=== PATIENT | female | born 2000 | race Caucasian/White ===

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

== ENCOUNTER 2019-06-28 17:56 | Inpatient (IN) | payer MEDICAID ==
[~2019-06-28] VITALS: Ht 176 cm; Wt 67.0 kg
[~2019-06-28 17:56] MED LIST changes: -D5 LR IV SOLUTION 1,000 ML IV ONE; +IBUP-844 PO; +PREN1TAB86 PO
--- NOTE | 2019-06-28 18:00 | NUR ---
Arrived to unit for induction of labor. Accompanied by mother. Wt obtained and to room 320. Gowned and urine sample obtained. To bed and oriented to bed, call light and surroundings. Plan of care reviewed with pt and mother. pt denies questions.
[2019-06-28 18:35] VITALS: BP 120/74
[2019-06-28] MEDS ORDERED: WATER (STERILE) FOR INJECTION 20 ML ONE (19:14)
[2019-06-28] MEDS ORDERED: AMPICILLIN FOR IV USE 2,000 MG VIAL ONE (19:14)
[2019-06-28] MEDS ORDERED: MINERAL OIL CONCENTRATE 99.9% 15 ML UDC TOP PRN (19:15)
[2019-06-28 19:24] LABS: BASOPHILS % (AUTO) 0 % (0-10); EOSINOPHILS # (AUTO) 0.1 10^3/uL (0.0-0.3); EOSINOPHILS % (AUTO) 1 % (0-10); HEMATOCRIT 27 % (35-52); HEMOGLOBIN 8.1 G/DL (11.5-16.0); LYMPHOCYTES # (AUTO) 1.9 X 10^3 (1.0-4.0); LYMPHOCYTES % (AUTO) 19 % (12-44); MEAN CORPUSCULAR HEMOGLOBIN 21 PG (25-34); MEAN CORPUSCULAR HGB CONC 30 G/DL (32-36); MEAN CORPUSCULAR VOLUME 71 FL (80-99); MONOCYTES # (AUTO) 1.1 X 10^3 (0.0-1.0); MONOCYTES % (AUTO) 11 % (0-12); NEUTROPHILS # (AUTO) 6.7 X 10^3 (1.8-7.8); NEUTROPHILS % (AUTO) 68 % (42-75); PLATELET COUNT 311 10^3/uL (130-400); RED CELL DISTRIBUTION WIDTH 15.8 % (10.0-14.5); WHITE BLOOD COUNT 9.8 10^3/uL (4.3-11.0)
[2019-06-28] MEDS: D5 LR IV SOLUTION 1,000 ML IV SCH (19:25)
[2019-06-28] MEDS ORDERED: LACTATED RINGERS 1,000 ML IV SCH (19:42)
[2019-06-28] MEDS ORDERED: MISOPROSTOL 100 MCG (CYTOTEC) TAB PO ONE (19:45)
[2019-06-28] MEDS ORDERED: TERBUTALINE INJ 1 MG/ML (BRETHINE) AMP SC PRN (19:45)
[2019-06-28] MEDS ORDERED: AMPICILLIN FOR IV USE 2,000 MG in WATER (STERILE) FOR INJECTION 14.8 ML IV ONE (20:00)
[2019-06-28 20:40] VITALS: BP 121/67
[2019-06-28 21:40] VITALS: BP 114/61
[2019-06-28] MEDS ORDERED: CATHETER FLUSH 10 ML SYR IV SCH (22:00)
[2019-06-28 22:40] VITALS: BP 113/67
[2019-06-28] MEDS: AMPICILLIN FOR IV USE 1,000 MG in WATER (STERILE) FOR INJECTION 7.4 ML IV SCH (23:22)
[2019-06-28 23:40] VITALS: BP 124/70
[2019-06-28] MEDS ORDERED: MISOPROSTOL 100 MCG (CYTOTEC) TAB PO SCH (23:45)
[2019-06-29] VITALS (15 sets, daily range): BP systolic 108–143; BP diastolic 55–83
[2019-06-29] MEDS: D5 LR IV SOLUTION 1,000 ML IV SCH (03:27)
[2019-06-29] MEDS: AMPICILLIN FOR IV USE 1,000 MG in WATER (STERILE) FOR INJECTION 7.4 ML IV SCH (03:27)
[2019-06-29] MEDS ORDERED: LIDOCAINE/EPI 2% 1:200,00 (XYLOCAINE) 10 ML VIAL ONE (03:28)
[2019-06-29] MEDS ORDERED: OXYTOCIN/NORMAL SALINE 500 ML IV ONE (04:08)
[2019-06-29] MEDS ORDERED: MISOPROSTOL 200 MCG (CYTOTEC) TABLET ONE (04:17)
--- NOTE | 2019-06-29 04:42 | History & Physical-OB ---
OB - Chief Complaint & HPI Date/Time Date of Admission: Date of Admission: Jun 28, 2019 at 17:56 Date seen by a Provider: Jun 29, 2019 Time Seen by a Provider: 03:45 Chief Complaint/History OB-Reason for Admission/Chief: Induction of Labor Hx : 2 Hx Para: 1 Expected Date of Delivery: Jun 27, 2019 Gestational Age in Weeks: 40 Gestational Age in Days: 1 Indication for induction: post dates Allergies and Home Medications Allergies Coded Allergies: No Known Drug Allergies (Unverified , 06/13/14) Home Medications Ibuprofen 600 Mg Tablet, 600 MG PO Q6H Prescribed by: GEREMIAS BAR on 04/07/18 1020 Vit W-Ca,Fe,FA(<1 mg) 1 Each Tablet, 1 EACH PO DAILY, (Reported) Patient Home Medication List Home Medication List Reviewed: Yes OB - History Hx of Present Care: Yes Ultrasounds: Normal mid trimester US Obstetrical Complications: None Medical Complications: None Other Concerns: hx of chlamydia - neg FEMI Anemia of - on Iron GBS+ Information Induced Hypertension: No Maternal Gestational Diabetes: No Hemorrhage: No Obstetrical History Hx : 2 Hx Para: 1 Hx # Term Pregnancies: 1 Hx # Pregnancies: 0 Number of Living Children: 1 Hx Termination: No Hx Multiple Gestation: No Hx Ectopic : No Hx Stillbirth: No Hx Complication: No Hx Induced Hypertens: No Hx Maternal Gestational Diabet: No Hx Hemorrhage: No Delivery History Hx Dystocia: No Hx Forceps Assisted Delivery: No Hx Vacuum Extraction Assisted: Yes Hx Placenta Abnormality: No Hx Distress: No Hx Large For Gestational Age I: Yes Hx Small for Gestational Age I: No Hx Section: No Hx Vaginal Delivery Post C-Sec: No Hx Blood Disorders: No Adverse Rxn to Tranfusion: No Patient Past Medical History No chronic medical problems Social History/Family History HIV/AIDS: No Recent Infectious Disease Expo: No Sexually Transmitted Disease: No Alcohol Use: Denies Use Recreational Drug Use: No Immunizations Hepatitis A: Yes Hepatitis B: Yes Tetanus Booster (TDap): Less than 5yrs (04/15/19) Rubella: immune RPR/VDRL: Negative GBS Status: Positive HBsAG: Negative OB - Admission Exam Physical Exam Vitals: Vital Signs 06/29/19 06/29/19 02:40 03:30 Temp 37.1 Pulse 69 Resp 18 B/P (MAP) 132/81 (98) O2 Delivery Room Air Abdomen: Gravid Cervical Dilatation: 8cm Effacement: 100% Station: +1 Membranes: Ruptured (AROM) Amniotic Fluid: Clear Heart Rate: 120's Accelerations: Accelerations Present Decelerations: Early Decelerations Short Term Variability: Present Air Moving Technician Variability: Average (6-25) Contractions on Admission: < 5 Minutes Apart Intensity: Firm Labs Laboratory Tests Test 06/28/19 18:45 Range/Units White Blood Count 9.8 4.3-11.0 10^3/uL Red Blood Count 3.83 L 4.35-5.85 10^6/uL Hemoglobin 8.1 L 11.5-16.0 G/DL Hematocrit 27 L 35-52 % Mean Corpuscular Volume 71 L 80-99 FL Mean Corpuscular Hemoglobin 21 L 25-34 PG Mean Corpuscular Hemoglobin Concent 30 L 32-36 G/DL Red Cell Distribution Width 15.8 H 10.0-14.5 % Platelet Count 311 130-400 10^3/uL Mean Platelet Volume 12.0 H 7.4-10.4 FL Neutrophils (%) (Auto) 68 42-75 % Lymphocytes (%) (Auto) 19 12-44 % Monocytes (%) (Auto) 11 0-12 % Eosinophils (%) (Auto) 1 0-10 % Basophils (%) (Auto) 0 0-10 % Neutrophils # (Auto) 6.7 1.8-7.8 X 10^3 Lymphocytes # (Auto) 1.9 1.0-4.0 X 10^3 Monocytes # (Auto) 1.1 H 0.0-1.0 X 10^3 Eosinophils # (Auto) 0.1 0.0-0.3 10^3/uL Basophils # (Auto) 0.0 0.0-0.1 10^3/uL OB - Assessment/Plan/Diagnosis Assessment Assessment: active labor, group B positive strep, induction of labor Admission Dx at 40w2d IOL for post-dates GBS positive anemia of hx of chlamydia Admission Status: Inpatient Order (span 2 midnights) Reason for Inpatient Admission: labor and delivery Plan Plan: Expectant Management Induction Method: per Misoprostol Protocol JOBY BURDEN DO Jun 29, 2019 04:42
--- NOTE | 2019-06-29 04:45 | NUR ---
ff 1 below umbilicus. light/moderate rubra
--- NOTE | 2019-06-29 04:48 | OB Labor & Delivery Record ---
Vag Delivery Note Vag Delivery Note Date of Delivery: 06/29/19 Preoperative Diagnosis: Santosh Oliva is a (19 /Para 2 / 1,Gestational Age (wks)40with [] Postoperative Diagnosis: Same Surgeon: JOBY BURDEN Anesthesia: none Delivery Type: spontaneous vaginal Findings: Viable female infant, apgars 8/9, weight 8#1 Lacerations: 2nd degree perineal - repaired; bilateral periurethral - no repaired Intact placenta with 3 vessel cord. No nuchal cord, body cord or shoulder dystocia Cytotec 800 mcg placed for hemorrhage prophylaxis Estimated Blood Loss: 400 ml Complications: None Condition: Stable Description of Procedure: The patient is a 19 year old female who presented for induction of labor with cytotec. She was admitted and informed consent was obtained. She received 1 dose of Cytotect and active labor ensued. Her labor course was remarkable for rapid progression. She progressed to complete dilatation and began to push. She was then set up for delivery. The infant's head was delivered atraumatically in the CHRISTIAN position. The shoulders and remainder of the 's body were then delivered without difficulty. Upon delivery, the head was held below the level of the perineum and the mouth and nares were bulb suctioned. The cord was doubly clamped and cut and the was placed on the maternal abdomen. An intact placenta with 3-vessel cord delivered via Duran and there was found to be bleeding despite pitocin. Cytotec 800mcg placed rectally.~ Vigorous fundal massage was performed and the fundus was found to be firm. IV oxytocin was given. Examination of the vagina and perineum revealed a 2nd laceration repaired in the usual fashion with 3-0 vicryl suture. Bilateral periurethral lacerations were hemostatic and not repaired. Following the repair, sponge, instrument and needle counts were correct. Mom and baby were both in stable condition in the labor suite. Vitals - Labs Vital Signs - I&O Vital Signs Date Time Temp Pulse Resp B/P (MAP) Pulse Ox O2 Delivery O2 Flow Rate FiO2 06/29/19 03:30 69 18 132/81 (98) Room Air 06/29/19 02:40 37.1 52 18 119/70 (86) Room Air 06/29/19 01:40 71 18 115/69 (84) Room Air 06/29/19 00:40 66 18 117/67 (84) Room Air 06/28/19 23:40 65 18 124/70 (88) Room Air 06/28/19 22:40 71 18 113/67 (82) Room Air 06/28/19 21:40 69 18 114/61 (78) Room Air 06/28/19 20:40 75 18 121/67 (85) Room Air 06/28/19 18:35 37.1 77 18 120/74 (89) Room Air Labs Laboratory Tests 06/28/19 18:45: White Blood Count 9.8, Red Blood Count 3.83L, Hemoglobin 8.1L, Hematocrit 27L, Mean Corpuscular Volume 71L, Mean Corpuscular Hemoglobin 21L, Mean Corpuscular Hemoglobin Concent 30L, Red Cell Distribution Width 15.8H, Platelet Count 311, Mean Platelet Volume 12.0H, Neutrophils (%) (Auto) 68, Lymphocytes (%) (Auto) 19, Monocytes (%) (Auto) 11, Eosinophils (%) (Auto) 1, Basophils (%) (Auto) 0, Neutrophils # (Auto) 6.7, Lymphocytes # (Auto) 1.9, Monocytes # (Auto) 1.1H, Eosinophils # (Auto) 0.1, Basophils # (Auto) 0.0 JOBY BURDEN DO Jun 29, 2019 04:48
--- NOTE | 2019-06-29 05:00 | NUR ---
pt ambulated to the bathroom. positive void. pericare completed. rubra moderate. no clots noted.
[2019-06-29] MEDS ORDERED: OXYTOCIN/NORMAL SALINE 500 ML IV SCH (05:09)
[2019-06-29] MEDS ORDERED: BENZOCAINE/MENTHOL (DERMOPLAST) 56 ML CAN TP PRN (05:15)
[2019-06-29] MEDS ORDERED: WITCH HAZEL(TUCKS) 40 EA JAR TOP PRN (05:15)
[2019-06-29] MEDS ORDERED: LIDOCAINE/EPI 2% 1:100,00 (XYLOCAINE) 20 ML VIAL INJ ONE ×2 (05:15→05:30)
[2019-06-29] MEDS ORDERED: MISOPROSTOL 200 MCG (CYTOTEC) TABLET PR ONE ×2 (05:15→05:30)
--- NOTE | 2019-06-29 05:15 | NUR ---
ff1 below umbilicus. light rubra noted
[2019-06-29] MEDS ORDERED: ACETAMINOPHEN 500 MG TAB (TYLENOL) ONE (05:29)
[2019-06-29] MEDS ORDERED: IBUPROFEN 600 MG (MOTRIN) TAB PO ONE (05:29)
[2019-06-29] MEDS ORDERED: MISOPROSTOL 200 MCG (CYTOTEC) TABLET PO ONE (05:30)
[2019-06-29] MEDS: IBUPROFEN 600 MG (MOTRIN) TAB PO SCH ×4 (05:40→23:54)
[2019-06-29] MEDS: ACETAMINOPHEN 500 MG TAB (TYLENOL) PO SCH ×3 (05:40→22:08)
[2019-06-29] MEDS ORDERED: CATHETER FLUSH 10 ML SYR IV SCH (06:00)
--- NOTE | 2019-06-29 06:00 | NUR ---
pt tx to room 309. pt assisted to toilet. pericare completed. moderate rubra noted. pt assisted back to bed. orientated to room. call light within reach. info papers discussed. pt denies any needs at this time. will continue to monitor.
[2019-06-29] MEDS: FERROUS SULF 325 MG (IRON) TAB PO SCH (08:37)
--- NOTE | 2019-06-29 08:40 | NUR ---
THIS RN INTRODUCES SELF TO PT AND FAMILY MEMBER. PHYSICAL ASSESSMENT COMPLETED. VSS. WATER PITCHER REFILLED. CALL LIGHT WITHIN REACH.
[2019-06-29 12:41] LABS: BASOPHILS % (AUTO) 0 % (0-10); EOSINOPHILS % (AUTO) 0 % (0-10); HEMATOCRIT 26 % (35-52); HEMOGLOBIN 7.9 G/DL (11.5-16.0); LYMPHOCYTES # (AUTO) 1.5 X 10^3 (1.0-4.0); LYMPHOCYTES % (AUTO) 10 % (12-44); MEAN CORPUSCULAR HEMOGLOBIN 22 PG (25-34); MEAN CORPUSCULAR HGB CONC 30 G/DL (32-36); MEAN CORPUSCULAR VOLUME 71 FL (80-99); MEAN PLATELET VOLUME 11.7 FL (7.4-10.4); MONOCYTES # (AUTO) 1.3 X 10^3 (0.0-1.0); MONOCYTES % (AUTO) 9 % (0-12); NEUTROPHILS # (AUTO) 11.9 X 10^3 (1.8-7.8); NEUTROPHILS % (AUTO) 81 % (42-75); PLATELET COUNT 260 10^3/uL (130-400); RED CELL DISTRIBUTION WIDTH 15.8 % (10.0-14.5); WHITE BLOOD COUNT 14.7 10^3/uL (4.3-11.0)
[2019-06-29 13:44] LABS: BAND NEUTROPHILS 1 %; BASOPHILS % (MANUAL) 0 %; EOSINOPHILS % (MANUAL) 0 %; LYMPHOCYTES % (MANUAL) 13 %; MONOCYTES % (MANUAL) 5 %; NEUTROPHILS % (MANUAL) 81 %; POLYCHROMASIA SLIGHT
[2019-06-29 13:45] LABS: ANISOCYTOSIS SLIGHT; ELLIPT/OVALOCYTES SLIGHT; HYPOCHROMASIA SLIGHT; MICROCYTOSIS SLIGHT; POIKILOCYTOSIS SLIGHT; TEAR DROP CELLS SLIGHT
--- NOTE | 2019-06-29 20:10 | NUR ---
pt resting in bed. family at bedside. assessment completed. pt denies any needs at this time. will continue to monitor.
[2019-06-30 00:07] VITALS: BP 119/63
[2019-06-30] MEDS: IBUPROFEN 600 MG (MOTRIN) TAB PO SCH ×3 (05:37→18:25)
[2019-06-30 05:38] VITALS: BP 115/70
[2019-06-30 06:20] LABS: BASOPHILS % (AUTO) 0 % (0-10); EOSINOPHILS # (AUTO) 0.2 10^3/uL (0.0-0.3); EOSINOPHILS % (AUTO) 2 % (0-10); HEMATOCRIT 25 % (35-52); HEMOGLOBIN 7.4 G/DL (11.5-16.0); LYMPHOCYTES # (AUTO) 2.5 X 10^3 (1.0-4.0); LYMPHOCYTES % (AUTO) 23 % (12-44); MEAN CORPUSCULAR HEMOGLOBIN 21 PG (25-34); MEAN CORPUSCULAR HGB CONC 30 G/DL (32-36); MEAN CORPUSCULAR VOLUME 71 FL (80-99); MEAN PLATELET VOLUME 11.5 FL (7.4-10.4); MONOCYTES # (AUTO) 1.3 X 10^3 (0.0-1.0); MONOCYTES % (AUTO) 12 % (0-12); NEUTROPHILS # (AUTO) 6.9 X 10^3 (1.8-7.8); NEUTROPHILS % (AUTO) 63 % (42-75); PLATELET COUNT 257 10^3/uL (130-400); RED CELL DISTRIBUTION WIDTH 16.3 % (10.0-14.5); WHITE BLOOD COUNT 10.9 10^3/uL (4.3-11.0)
--- NOTE | 2019-06-30 09:00 | NUR ---
A.M. ASSESSMENT COMPLETED. VSS. CARING FOR IN ROOM.
--- NOTE | 2019-06-30 09:38 | Progress Note ---
Subjective Subjective/Events-last exam Doing well. Bleeding slowed, pain controlled. Objective Exam Last Set of Vital Signs Vital Signs Date Time Temp Pulse Resp B/P (MAP) Pulse Ox O2 Delivery O2 Flow Rate FiO2 06/30/19 05:38 37.3 52 18 115/70 (85) 98 06/30/19 00:07 Room Air Capillary Refill : General: Alert, Oriented X3, Cooperative Abdomen: Soft (uterus firm) Results/Procedures Lab Laboratory Tests 06/29/19 12:20: White Blood Count 14.7H, Red Blood Count 3.68L, Hemoglobin 7.9L, Hematocrit 26L, Mean Corpuscular Volume 71L, Mean Corpuscular Hemoglobin 22L, Mean Corpuscular Hemoglobin Concent 30L, Red Cell Distribution Width 15.8H, Platelet Count 260, Mean Platelet Volume 11.7H, Neutrophils (%) (Auto) 81H, Lymphocytes (%) (Auto) 10L, Monocytes (%) (Auto) 9, Eosinophils (%) (Auto) 0, Basophils (%) (Auto) 0, Neutrophils # (Auto) 11.9H, Lymphocytes # (Auto) 1.5, Monocytes # (Auto) 1.3H, Eosinophils # (Auto) 0.0, Basophils # (Auto) 0.0, Neutrophils % (Manual) 81, Lymphocytes % (Manual) 13, Monocytes % (Manual) 5, Eosinophils % (Manual) 0, Basophils % (Manual) 0, Band Neutrophils 1, Polychromasia SLIGHT, Hypochromasia SLIGHT, Poikilocytosis SLIGHT, Anisocytosis SLIGHT, Microcytosis SLIGHT, Tear Drop Cells SLIGHT, Elliptocytes SLIGHT 06/30/19 06:00: White Blood Count 10.9, Red Blood Count 3.50L, Hemoglobin 7.4L, Hematocrit 25L, Mean Corpuscular Volume 71L, Mean Corpuscular Hemoglobin 21L, Mean Corpuscular Hemoglobin Concent 30L, Red Cell Distribution Width 16.3H, Platelet Count 257, Mean Platelet Volume 11.5H, Neutrophils (%) (Auto) 63, Lymphocytes (%) (Auto) 23, Monocytes (%) (Auto) 12, Eosinophils (%) (Auto) 2, Basophils (%) (Auto) 0, Neutrophils # (Auto) 6.9, Lymphocytes # (Auto) 2.5, Monocytes # (Auto) 1.3H, Eosinophils # (Auto) 0.2, Basophils # (Auto) 0.0 Assessment/Plan Assessment/Plan Assessment & Plan 1. PPD#1 s/p 2. second degree laceration repair 3. anemia of - stable, asymptomatic 4. GBS+ - adequate antibiotic ppx prior to delivery 5. Hx of chlamydia Routine pp care; anticipate DC home tomorrow. Clinical Quality Measures DVT/VTE Risk/Contraindication: Risk Factor Score Per Nursin RFS Level Per Nursing on Admit: 1=Low/No VTE PPX JOBY BURDEN DO Jun 30, 2019 09:38
[2019-06-30 10:00] VITALS: BP 110/62
[2019-06-30] MEDS: FERROUS SULF 325 MG (IRON) TAB PO SCH ×2 (10:27→19:33)
[2019-06-30] MEDS: ACETAMINOPHEN 500 MG TAB (TYLENOL) PO SCH ×2 (10:27→17:45)
--- NOTE | 2019-06-30 11:00 | NUR ---
NO CHANGE IN STATUS. REMAINS IN ROOM. GOOD INTERACTION NOTED.
[2019-06-30 13:30] VITALS: BP 117/74
--- NOTE | 2019-06-30 13:30 | NUR ---
HAVE NOT SEEN ANY VISITORS IN PT'S ROOM TODAY. QUIET AFFECT. HASN'T SHOWERED YET. EXPLAINED ABOUT THE STORK MEAL. DENIES ANY WANTS OR NEEDS.
--- NOTE | 2019-06-30 15:30 | NUR ---
CONTINUES TO DO WELL. CARING FOR INFANT AND WATCHING TV. NO REQUESTS OR COMPLAINTS.
--- NOTE | 2019-06-30 17:45 | NUR ---
STATES HER MOTHER IS SUPPOSED TO COME AFTER WORK. NO CHANGE IN STATUS.
[2019-06-30 18:00] VITALS: BP 104/63
--- NOTE | 2019-06-30 19:30 | NUR ---
pt coming out of bathroom, denies pain or difficulty with urination. plan of care reviewed with pt. family at bedside.
[2019-07-01 00:01] VITALS: BP 118/66
[2019-07-01] MEDS: ACETAMINOPHEN 500 MG TAB (TYLENOL) PO SCH ×2 (00:01→06:04)
[2019-07-01] MEDS: IBUPROFEN 600 MG (MOTRIN) TAB PO SCH ×2 (06:04)
[2019-07-01 06:05] VITALS: BP 114/66
[2019-07-01 08:30] VITALS: BP 118/71
--- NOTE | 2019-07-01 08:30 | NUR ---
A.M. ASSESSMENT COMPLETED. VSS. CARING FOR IN ROOM. GOOD INTERACTION NOTED.
[2019-07-01] MEDS ORDERED: IBUP-844 PO (08:34)
[2019-07-01] MEDS ORDERED: FERR325T18 PO (08:34)
--- NOTE | 2019-07-01 08:36 | Short Stay Summary ---
Discharge Summary Hospital Course Final Diagnosis: s/p at 40w2d; 2nd degree laceration repair Hospital Course Date of Admission: Jun 28, 2019 at 17:56 Admission Diagnosis : Family Physician/Provider: Dolly Cristina MD Hospital Course: Routine care. Labs and Pending Lab Test: Home Meds Active Ibu (Ibuprofen) 600 Mg Tablet 600 Mg PO Q6HR Ferrous Sulfate 325 Mg Tablet 325 Mg PO DAILY Ibu (Ibuprofen) 600 Mg Tablet 600 Mg PO Q6H Reported Vitamins ( Vit W-Ca,Fe,FA(<1 mg)) 1 Each Tablet 1 Each PO DAILY Assessment/Pt Instructions Follow up with Dr. Cristina in 6 wk. Discharge Instructions Discharge Diet: No Restrictions Discharge Physical Examination General Appearance: Alert, Oriented X3, Cooperative Psych/Mental Status: Mood NL Allergies: Coded Allergies: No Known Drug Allergies (Unverified , 06/13/14) Discharge Summary Date of Admission Jun 28, 2019 at 17:56 Date of Discharge Clinical Quality Measures DVT/VTE Risk/Contraindication: Risk Factor Score Per Nursin RFS Level Per Nursing on Admit: 1=Low/No VTE PPX JOBY BURDEN DO Jul 01, 2019 08:35
[2019-07-01] MEDS: FERROUS SULF 325 MG (IRON) TAB PO SCH (08:40)
--- NOTE | 2019-07-01 08:40 | NUR ---
DR. BURDEN IN TO SEE PT. PLAN FOR DISCHARGE.
--- NOTE | 2019-07-01 09:30 | NUR ---
DOING WELL. PT'S MOM TO TAKE HER HOME.
--- NOTE | 2019-07-01 10:40 | NUR ---
DISCHARGE INSTRUCTIONS REVIEWED WITH COPY TO PT. STATES UNDERSTANDING OF ALL INSTRUCTIONS AND NEED TO F/U SCHEDULED AND NEEDED.
[2019-07-01 10:45] VITALS: BP 118/71
--- NOTE | 2019-07-01 10:45 | NUR ---
DISMISSED AMB FROM [facility] WITH IN STABLE CONDITION TO FAMILY CAR ACC BY MOTHER, AND LUIS ARMANDO RN TO CHECK CAR SEAT INSTALLATION.
== END 2019-07-01 10:45 | disposition home or self-care (01) | DRG 807 ==
LOC: LDRP 17:56
PROVIDERS: ADMIT Family Medicine; ATTEND Family Medicine
PROC: 10E0XZZ Delivery of Products of Conception, External Approach (ICD-10-PCS; principal; 2019-06-29)
PROC: 0KQM0ZZ Repair Perineum Muscle, Open Approach (ICD-10-PCS; 2019-06-29)
PROC: 10907ZC Drainage of Amniotic Fluid, Therapeutic from Products of Conception, Via Natural or Artificial Opening (ICD-10-PCS; 2019-06-29)
PROC: 3E0P7VZ Introduction of Hormone into Female Reproductive, Via Natural or Artificial Opening (ICD-10-PCS; 2019-06-29)
DX: O48.0 Post-term pregnancy (principal); Z37.0 Single live birth; O99.02 Anemia complicating childbirth; D64.9 Anemia, unspecified; O99.824 Streptococcus B carrier state complicating childbirth; O76 Abnormality in fetal heart rate and rhythm complicating labor and delivery; O70.1 Second degree perineal laceration during delivery; O71.82 Other specified trauma to perineum and vulva; Z3A.40 40 weeks gestation of pregnancy
CPT/HCPCS: 36415; 85007; 85025; 85027; 86850; 86900; 86901

== ENCOUNTER 2020-05-23 22:30 | Inpatient (IN) | payer MEDICAID ==
[~2020-05-23] VITALS: Ht 175.3 cm; Wt 64.9 kg
[~2020-05-23 22:30] MED LIST changes: +FERR325T18 PO
--- NOTE | 2020-05-23 22:34 | NUR ---
TANJA MATHEW presented to unit via from ED, accompanied by MOTHER, with c/o VAGINAL BLEEDING. TANJA MATHEW S weighed, gowned, voided, and to bed. EFHM and TOCO applied, VS taken. TANJA MATHEW S oriented to bed controls, call light, TV, heat, and A/C controls.
[2020-05-23] MEDS ORDERED: D5 LR IV SOLUTION 1,000 ML IV ONE (22:49)
--- NOTE | 2020-05-23 22:50 | NUR ---
bedside sono per Spenser Borja RN to confirm Vertex presentation.
--- NOTE | 2020-05-23 22:53 | NUR ---
Dr. Cristina called regarding pt's arrival, complaints of vaginal bleeding, and sve. En route to hospital.
[2020-05-23] MEDS ORDERED: D5 LR IV SOLUTION 1,000 ML IV SCH (23:12)
[2020-05-23] MEDS ORDERED: MINERAL OIL CONCENTRATE 99.9% 15 ML UDC TOP PRN (23:15)
--- NOTE | 2020-05-23 23:20 | NUR ---
blood sent to lab.
[2020-05-23 23:21] VITALS: BP 143/86
[2020-05-23 23:26] VITALS: BP 143/86
[2020-05-23 23:26] LABS: BASOPHILS % (AUTO) 0 % (0-10); EOSINOPHILS % (AUTO) 0 % (0-10); HEMATOCRIT 28 % (35-52); HEMOGLOBIN 8.2 G/DL (11.5-16.0); LYMPHOCYTES # (AUTO) 2.5 X 10^3 (1.0-4.0); LYMPHOCYTES % (AUTO) 23 % (12-44); MEAN CORPUSCULAR HEMOGLOBIN 19 PG (25-34); MEAN CORPUSCULAR HGB CONC 30 G/DL (32-36); MEAN CORPUSCULAR VOLUME 64 FL (80-99); MEAN PLATELET VOLUME 11.3 FL (7.4-10.4); MONOCYTES # (AUTO) 1.2 X 10^3 (0.0-1.0); MONOCYTES % (AUTO) 11 % (0-12); NEUTROPHILS # (AUTO) 7.3 X 10^3 (1.8-7.8); NEUTROPHILS % (AUTO) 66 % (42-75); PLATELET COUNT 343 10^3/uL (130-400)
[2020-05-23 23:38] VITALS: BP 124/77
--- NOTE | 2020-05-23 23:45 | NUR ---
numerous perineal varicosities noted.
--- NOTE | 2020-05-23 23:55 | History & Physical-OB ---
OB - Chief Complaint & HPI Date/Time Date of Admission: Date of Admission: May 23, 2020 at 23:01 Date seen by a Provider: May 23, 2020 Time Seen by a Provider: 23:50 Chief Complaint/History OB-Reason for Admission/Chief: Onset of Labor Hx : 3 Hx Para: 2 Expected Date of Delivery: Jun 02, 2020 Gestational Age in Weeks: 38 Gestational Age in Days: 4 History of Labs O+, Ab neg Rub Imm GC/chyl neg HepB/HIV/RPR NR Normal 1 hr GTT and RPR NR GBS neg Hgb 8.2 Allergies and Home Medications Allergies Coded Allergies: No Known Drug Allergies (Unverified , 06/13/14) Home Medications Ferrous Sulfate 325 Mg Tablet, 325 MG PO DAILY Prescribed by: JOBY BURDEN on 07/01/19833 Ibuprofen 600 Mg Tablet, 600 MG PO Q6HR Prescribed by: JOBY BURDEN on 07/01/19833 Vit W-Ca,Fe,FA(<1 mg) 1 Each Tablet, 1 EACH PO DAILY, (Reported) Patient Home Medication List Home Medication List Reviewed: Yes OB - History Hx of Present Care: Yes Ultrasounds: Normal mid trimester US, Abnormal US findings (37 week US for small fundal height with fetus measuring 35 weeks) Obstetrical Complications: Growth Restriction Medical Complications: None Information Induced Hypertension: No Maternal Gestational Diabetes: No Hemorrhage: No Obstetrical History Hx : 3 Hx Para: 2 Hx # Term Pregnancies: 2 Number of Living Children: 2 Hx Termination: No Hx Multiple Gestation: No Hx Stillbirth: No Hx Complication: No Hx Induced Hypertens: No Hx Maternal Gestational Diabet: No Delivery History Hx Dystocia: No Hx Vacuum Extraction Assisted: Yes (G1) Hx Large For Gestational Age I: Yes Hx Small for Gestational Age I: No Hx Section: No Hx Vaginal Delivery Post C-Sec: No Hx Blood Disorders: No Adverse Rxn to Tranfusion: No Patient Past Medical History Anemia in Social History/Family History HIV/AIDS: No Recent Infectious Disease Expo: No Sexually Transmitted Disease: No Alcohol Use: Denies Use Recreational Drug Use: No 2nd Hand Smoke Exposure: No Immunizations Hepatitis A: Yes Hepatitis B: Yes Tetanus Booster (TDap): Less than 5yrs Rubella: immune RPR/VDRL: Negative GBS Status: Negative HBsAG: Negative OB - Admission Exam Physical Exam Vitals: Vital Signs 05/23/20 23:26 Temp 37.0 Pulse 77 Resp 18 Pulse Ox 99 O2 Delivery Room Air HEENT: NCAT Heart: Rhythm Normal Lungs: Clear Abdomen: Gravid Extremities: Normal Reflexes: Normal Cervical Dilatation: 6cm Effacement: 100% Station: -1 Membranes: Ruptured Amniotic Fluid: Clear Accelerations: Accelerations Present Decelerations: No Decelerations Short Term Variability: Present Contractions on Admission: < 5 Minutes Apart Intensity: Moderate Labs Laboratory Tests Test 05/23/20 23:00 Range/Units White Blood Count 11.0 4.3-11.0 10^3/uL Red Blood Count 4.31 L 4.35-5.85 10^6/uL Hemoglobin 8.2 L 11.5-16.0 G/DL Hematocrit 28 L 35-52 % Mean Corpuscular Volume 64 L 80-99 FL Mean Corpuscular Hemoglobin 19 L 25-34 PG Mean Corpuscular Hemoglobin Concent 30 L 32-36 G/DL Red Cell Distribution Width 17.0 H 10.0-14.5 % Platelet Count 343 130-400 10^3/uL Mean Platelet Volume 11.3 H 7.4-10.4 FL Neutrophils (%) (Auto) 66 42-75 % Lymphocytes (%) (Auto) 23 12-44 % Monocytes (%) (Auto) 11 0-12 % Eosinophils (%) (Auto) 0 0-10 % Basophils (%) (Auto) 0 0-10 % Neutrophils # (Auto) 7.3 1.8-7.8 X 10^3 Lymphocytes # (Auto) 2.5 1.0-4.0 X 10^3 Monocytes # (Auto) 1.2 H 0.0-1.0 X 10^3 Eosinophils # (Auto) 0.0 0.0-0.3 10^3/uL Basophils # (Auto) 0.0 0.0-0.1 10^3/uL OB - Assessment/Plan/Diagnosis Assessment Assessment: active labor Admission Dx Active Labor 38 week gestation SGA Admission Status: Inpatient Order (span 2 midnights) Reason for Inpatient Admission: Labor Plan Plan: Expectant Management Other Plan 20 yo @ 38.4 wga here in active labor Plan GBS neg Expectant management Patient wishes to have natural delivery GEREMIAS BAR MD May 23, 2020 23:55
[2020-05-24] VITALS (11 sets, daily range): BP systolic 112–146; BP diastolic 59–91
[2020-05-24] MEDS ORDERED: OXYTOCIN PRE-MIX DRIP 500 ML IV ONE ×2 (00:29→01:16)
[2020-05-24] MEDS ORDERED: LIDOCAINE/EPI 2% 1:200,00 (XYLOCAINE) 10 ML VIAL ONE (00:49)
--- NOTE | 2020-05-24 00:49 | NUR ---
spontaneous vaginal delivery of placenta with cord, fundal massage per dr phillips. perineum examined and 1 degree tear noted per dr phillips 0053 local to perineum per dr phillips and repair of 1st degree tear 0058 vss ffu/0 with moderate rubra noted, no clots expressed. 0107 skin to skin with mother 0112 ffu/0 with moderate rubra noted, no clots expressed. 0133 eating sandwich tray and . ffu/0 with mod rubra noted, no clots expressed.
[2020-05-24] MEDS ORDERED: OXYTOCIN PRE-MIX DRIP 500 ML IV SCH (01:11)
[2020-05-24] MEDS ORDERED: DIBUCAINE (NUPERCAINAL) 1% OINT 30 GM TOP PRN (01:15)
[2020-05-24] MEDS ORDERED: WITCH HAZEL(TUCKS) 40 EA JAR TOP PRN (01:15)
[2020-05-24] MEDS ORDERED: BENZOCAINE/MENTHOL (DERMOPLAST) 60 ML CAN TP PRN (01:15)
--- NOTE | 2020-05-24 01:15 | OB Labor & Delivery Record ---
Vag Delivery Note Vag Delivery Note Date of Delivery: 05/24/20 Preoperative Diagnosis: Santosh Oliva is a (20 /Para 3 / 2,Gestational Age (wks)38.5 admitted for Active labor Postoperative Diagnosis: Same Surgeon: GEREMIAS BAR Bank Boss: None Anesthesia: None Delivery Type: @ 0045 Findings: Viable male infant, apgars 8/9, weight 7#0, 3175 grams Lacerations: 1st degree laceration Intact placenta with 3 vessel cord. Nuchal cord x1. No body cord or shoulder dystocia Estimated Blood Loss: 175 ml Complications: None Condition: Stable Description of Procedure: The patient is a 20 year old female who presented in active labor. She was admitted and informed consent was obtained. Her labor course was unremarkable. She progressed to complete dilatation and began to push. She was then set up for delivery. The 's head was delivered atraumatically in the CHRISTIAN position. The shoulders and remainder of the 's body were then delivered without difficulty. Upon delivery, the head was held below the level of the perineum and the mouth and nares were bulb suctioned. The cord was doubly clamped and cut and the infant was handed off to the pediatric staff. An intact placenta with 3-vessel cord delivered via Duran and there was found to be minimal bleeding.~ Vigorous fundal massage was performed and the fundus was found to be firm. IV oxytocin was given. Examination of the vagina and perineum revealed a 1st degree laceration repaired in the usual fashion with 3-0 vicryl suture. Following the repair, sponge, instrument and needle counts were correct. Mom and baby were both in stable condition in the labor suite. Vitals - Labs Vital Signs - I&O Vital Signs Date Time Temp Pulse Resp B/P (MAP) Pulse Ox O2 Delivery O2 Flow Rate FiO2 05/23/20 23:38 74 18 124/77 (93) 92 Room Air 05/23/20 23:26 37.0 77 18 99 Room Air 05/23/20 23:25 37.0 05/23/20 23:21 37.0 77 20 99 Room Air Labs Laboratory Tests 05/23/20 23:00: White Blood Count 11.0, Red Blood Count 4.31L, Hemoglobin 8.2L, Hematocrit 28L, Mean Corpuscular Volume 64L, Mean Corpuscular Hemoglobin 19L, Mean Corpuscular Hemoglobin Concent 30L, Red Cell Distribution Width 17.0H, Platelet Count 343, Mean Platelet Volume 11.3H, Neutrophils (%) (Auto) 66, Lymphocytes (%) (Auto) 23, Monocytes (%) (Auto) 11, Eosinophils (%) (Auto) 0, Basophils (%) (Auto) 0, Neutrophils # (Auto) 7.3, Lymphocytes # (Auto) 2.5, Monocytes # (Auto) 1.2H, Eosinophils # (Auto) 0.0, Basophils # (Auto) 0.0 GEREMIAS BAR MD May 24, 2020 01:15
[2020-05-24] MEDS ORDERED: IBUPROFEN 600 MG (MOTRIN) TAB PO ONE (01:16)
--- NOTE | 2020-05-24 01:55 | NUR ---
ffu/o with lt rubra noted, pericare, pad changed, underwear on. gown changed.
--- NOTE | 2020-05-24 02:04 | NUR ---
Assisted to wheelchair and to room 312. oriented to room,call light and surroundings.
[2020-05-24] MEDS ORDERED: CATHETER FLUSH 10 ML SYR IV SCH ×2 (06:00)
[2020-05-24] MEDS ORDERED: PRENATAL VITAMIN 1 EA TAB PO SCH (07:00)
[2020-05-24] MEDS: DOCUSATE SODIUM 100 MG (COLACE) CAP PO SCH ×2 (07:48→23:00)
[2020-05-24] MEDS: ACETAMINOPHEN 500 MG TAB (TYLENOL) PO SCH ×2 (07:50→13:00)
[2020-05-24] MEDS: IBUPROFEN 600 MG (MOTRIN) TAB PO SCH ×3 (07:50→23:00)
[2020-05-24] MEDS ORDERED: FERROUS SULF 325 MG (IRON) TAB PO SCH (09:00)
[2020-05-25 05:18] LABS: BASOPHILS % (AUTO) 0 % (0-10); EOSINOPHILS # (AUTO) 0.1 10^3/uL (0.0-0.3); EOSINOPHILS % (AUTO) 1 % (0-10); HEMATOCRIT 25 % (35-52); HEMOGLOBIN 7.3 G/DL (11.5-16.0); LYMPHOCYTES # (AUTO) 3.3 X 10^3 (1.0-4.0); LYMPHOCYTES % (AUTO) 28 % (12-44); MEAN CORPUSCULAR HEMOGLOBIN 19 PG (25-34); MEAN CORPUSCULAR HGB CONC 29 G/DL (32-36); MEAN CORPUSCULAR VOLUME 65 FL (80-99); MEAN PLATELET VOLUME 11.1 FL (7.4-10.4); MONOCYTES # (AUTO) 1.2 X 10^3 (0.0-1.0); MONOCYTES % (AUTO) 10 % (0-12); NEUTROPHILS # (AUTO) 7.1 X 10^3 (1.8-7.8); NEUTROPHILS % (AUTO) 60 % (42-75); PLATELET COUNT 272 10^3/uL (130-400); RED CELL DISTRIBUTION WIDTH 17.4 % (10.0-14.5); WHITE BLOOD COUNT 11.7 10^3/uL (4.3-11.0)
[2020-05-25 05:32] VITALS: BP 116/75
[2020-05-25 08:40] VITALS: BP 110/84
--- NOTE | 2020-05-25 10:39 | Discharge Summary ---
Diagnosis/Chief Complaint Date of Admission May 23, 2020 at 23:01 Date of Discharge Discharge Summary-Simple/Stand Discharge Physical Examination Allergies: Coded Allergies: No Known Drug Allergies (Unverified , 06/13/14) Vitals & I&Os Vital Sign - Last 12Hours Date Time Temp Pulse Resp B/P (MAP) Pulse Ox O2 Delivery O2 Flow Rate FiO2 05/25/20 08:40 36.6 85 16 110/84 (93) 100 Room Air Hospital Course See final discharge diagnosis. Discharge Instructions to patient/family Please see electronic discharge instructions given to patient. Discharge Medications Reviewed and agree with Discharge Medication list on patient's Discharge Instruction sheet Clinical Quality Measures DVT/VTE Risk/Contraindication: Risk Factor Score Per Nursin RFS Level Per Nursing on Admit: 1=Low/No VTE PPX GEREMIAS BAR MD May 25, 2020 10:39
--- NOTE | 2020-05-25 10:41 | Discharge Summary ---
Discharge Inst-[facility] Reconcile Patient Problems Problems Reviewed?: Yes Depart Medications New, Converted or Re-Newed RX: Transmitted to Pharmacy Continued Medications: Ferrous Sulfate (Ferrous Sulfate) 325 Mg Tablet 325 MG PO DAILY, #30 TAB 0 Refills Ibuprofen (Ibu) 600 Mg Tablet 600 MG PO Q6HR, #90 TAB 0 Refills Vit W-Ca,Fe,FA(<1 mg) ( Vitamins) 1 Each Tablet 1 EACH PO DAILY, TAB Follow Up/Instructions Goal/Follow Up: 6 week f.u with Ib[facility] Activity Activity: Activity as Tolerated Driving Instructions: You May Drive NO SMOKING: NO SMOKING Nothing Inside Vagina: No Douching, No [place], No Tampons Diet Discharge Diet: No Restrictions Symptoms to Report to : Bleeding Excessive, Fever Over 101 Degrees F, Vaginal Discharge Foul For Any Problems or Questions: Contact Your Physician Copies To 1: GEREMIAS BAR MD, HOLLY R MD May 25, 2020 10:41
--- NOTE | 2020-05-25 12:15 | NUR ---
TANJA MATHEW demonstrates understanding of discharge instructions and accurately returns instructions upon questioning. Copy of Post-Discharge Instructions and Medication Discharge Instructions given to patient. TANJA MATHEW is able to manage continuing needs after discharge. Patients belongings returned to patient. Skin dry and intact; no breakdown noted. Patient discharged from [facility] on 05-25-20 at 1215. TANJA MATHEW left floor via ambulation, accompanied by staff.
== END 2020-05-25 12:15 | disposition home or self-care (01) | DRG 807 ==
LOC: LDRP 22:30 → WSo 22:30 → LDRP 23:01
PROVIDERS: ADMIT Family Medicine; ATTEND Family Medicine
PROC: 10E0XZZ Delivery of Products of Conception, External Approach (ICD-10-PCS; principal; 2020-05-24)
PROC: 0HQ9XZZ Repair Perineum Skin, External Approach (ICD-10-PCS; 2020-05-24)
DX: O99.02 Anemia complicating childbirth (principal); Z37.0 Single live birth; O70.0 First degree perineal laceration during delivery; O69.81X0 Labor and delivery complicated by cord around neck, without compression, not applicable or unspecified; Z3A.38 38 weeks gestation of pregnancy; D64.9 Anemia, unspecified
CPT/HCPCS: 36415; 85025; 86850; 86900; 86901; 99212

== ENCOUNTER 2020-09-02 11:04 | Emergency (ER) | payer MEDICAID ==
[~2020-09-02] VITALS: Ht 177.8 cm; Wt 51.3 kg
--- NOTE | 2020-09-02 12:07 | ED Abdominal Pain ---
General Chief Complaint: Abdominal/GI Problems Stated Complaint: ABD PAIN Source of Information: Patient Exam Limitations: No Limitations History of Present Illness Date Seen by Provider: Sep 02, 2020 Time Seen by Provider: 12:07 Initial Comments Suprapubic abdominal pain for 2 days no dysuria no nausea no vomiting no fever no chills. Timing/Duration: 1-2 Days Severity/Quality: Moderate Location: Suprapubic Radiation: No Radiation Activities at Onset: None Allergies and Home Medications Allergies Coded Allergies: No Known Drug Allergies (Unverified , 06/13/14) Home Medications Ferrous Sulfate 325 Mg Tablet, 325 MG PO DAILY Prescribed by: JOBY BURDEN on 07/01/19 0834 Ibuprofen 600 Mg Tablet, 600 MG PO Q6HR Prescribed by: JOBY BURDEN on 07/01/19 0834 Vit W-Ca,Fe,FA(<1 mg) 1 Each Tablet, 1 EACH PO DAILY, (Reported) Patient Home Medication List Home Medication List Reviewed: Yes Review of Systems Review of Systems Constitutional: see HPI; No chills, No fever EENTM: No Symptoms Reported Respiratory: No Symptoms Reported Cardiovascular: No Symptoms Reported Gastrointestinal: See HPI, Abdominal Pain Genitourinary: No Symptoms Reported Musculoskeletal: no symptoms reported Skin: no symptoms reported Psychiatric/Neurological: No Symptoms Reported Endocrine: No Symptoms Reported Past Rewzfwz-Iykzig-Fynviv Hx Patient Social History 2nd Hand Smoke Exposure: No Recent Foreign Travel: No Contact w/Someone Who Travel: No Recent Hopitalizations: No Immunizations Up To Date Tetanus Booster (TDap): Less than 5yrs PED Vaccines UTD: Yes Seasonal Allergies Seasonal Allergies: No Past Medical History Surgeries: No Respiratory: No Cardiac: No Neurological: No Female Reproductive Disorders: Denies Sexually Transmitted Disease: No HIV/AIDS: No Genitourinary: No Gastrointestinal: No Musculoskeletal: No Endocrine: No HEENT: No Tonsilitis Loss of Vision: Denies Hearing Impairment: Denies Cancer: No Psychosocial: No ADD/ADHD, Bipolar, Depression Integumentary: No Blood Disorders: No Adverse Reaction/Blood Tranf: No Family Medical History Asthma 19 FATHER FH: breast cancer MATERNAL GRANDMOTHER PATERNAL GRANDMOTHER FH: kidney disease 19 MOTHER, Onset:Childhood No Pertinent Family Hx Physical Exam Vital Signs Vital Signs - First Documented 09/02/20 11:48 Temp 36.9 Pulse 132 Resp 20 B/P (MAP) 105/68 (80) Pulse Ox 99 O2 Delivery Room Air Capillary Refill : Height/Weight/BMI Height: 5'10.50" Weight: 150lbs. 0.0oz. 68.952739vh; 21.11 BMI Method:Stated General Appearance: WD/WN, no apparent distress, thin Neck: non-tender, full range of motion Respiratory: no respiratory distress, no accessory muscle use Cardiovascular: no murmur, tachycardia Gastrointestinal: normal bowel sounds, non tender, soft Extremities: normal range of motion, non-tender Neurologic/Psychiatric: alert, normal mood/affect, oriented x 3 Skin: normal color, warm/dry Focused Exam Lactate Level 09/02/20 14:37: Lactic Acid Level 1.14 Lactic Acid Level Laboratory Tests Test 09/02/20 14:37 Lactic Acid Level 1.14 MMOL/L (0.50-2.00) Progress/Results/Core Measures Results/Orders Lab Results Laboratory Tests Test 09/02/20 12:44 09/02/20 13:10 09/02/20 14:37 Range/Units Urine Color ORANGE Urine Clarity CLOUDY Urine pH 6.0 5-9 Urine Specific [place] >=1.030 1.016-1.022 Urine Protein 2+ H NEGATIVE Urine Glucose (UA) NEGATIVE NEGATIVE Urine Ketones NEGATIVE NEGATIVE Urine Nitrite NEGATIVE NEGATIVE Urine Bilirubin NEGATIVE NEGATIVE Urine Urobilinogen 1.0 < = 1.0 MG/DL Urine Leukocyte Esterase NEGATIVE NEGATIVE Urine RBC (Auto) 3+ H NEGATIVE Urine RBC 50-100 H /HPF Urine WBC >100 H /HPF Urine Squamous Epithelial Cells 5-10 /HPF Urine Crystals NONE /LPF Urine Bacteria MODERATE H /HPF Urine Casts NONE /LPF Urine Mucus MODERATE H /LPF Urine Trichomonas FEW H /HPF Urine Culture Indicated YES White Blood Count 20.5 H 4.3-11.0 10^3/uL Red Blood Count 4.92 3.80-5.11 10^6/uL Hemoglobin 10.4 L 11.5-16.0 g/dL Hematocrit 35 35-52 % Mean Corpuscular Volume 71 L 80-99 fL Mean Corpuscular Hemoglobin 21 L 25-34 pg Mean Corpuscular Hemoglobin Concent 30 L 32-36 g/dL Red Cell Distribution Width 19.0 H 10.0-14.5 % Platelet Count 437 H 130-400 10^3/uL Mean Platelet Volume 9.7 9.0-12.2 fL Immature Granulocyte % (Auto) 1 % Neutrophils (%) (Auto) 84 H 42-75 % Lymphocytes (%) (Auto) 8 L 12-44 % Monocytes (%) (Auto) 7 0-12 % Eosinophils (%) (Auto) 0 0-10 % Basophils (%) (Auto) 0 0-10 % Neutrophils # (Auto) 17.2 H 1.8-7.8 10^3/uL Lymphocytes # (Auto) 1.6 1.0-4.0 10^3/uL Monocytes # (Auto) 1.4 H 0.0-1.0 10^3/uL Eosinophils # (Auto) 0.1 0.0-0.3 10^3/uL Basophils # (Auto) 0.0 0.0-0.1 10^3/uL Immature Granulocyte # (Auto) 0.1 0.0-0.1 10^3/uL Neutrophils % (Manual) 86 % Lymphocytes % (Manual) 7 % Monocytes % (Manual) 7 % Toxic Granulation 1+ Hypochromasia MODERATE Poikilocytosis SLIGHT Anisocytosis MODERATE Macrocytosis MODERATE Elliptocytes SLIGHT Sodium Level 136 135-145 MMOL/L Potassium Level 3.3 L 3.6-5.0 MMOL/L Chloride Level 101 98-107 MMOL/L Carbon Dioxide Level 24 21-32 MMOL/L Anion Gap 11 5-14 MMOL/L Blood Urea Nitrogen 15 7-18 MG/DL Creatinine 0.95 0.60-1.30 MG/DL Estimat Glomerular Filtration Rate > 60 BUN/Creatinine Ratio 16 Glucose Level 111 H 70-105 MG/DL Calcium Level 9.2 8.5-10.1 MG/DL Corrected Calcium 9.0 8.5-10.1 MG/DL Total Bilirubin 0.8 0.1-1.0 MG/DL Aspartate Amino Transf (AST/SGOT) 9 5-34 U/L Alanine Aminotransferase (ALT/SGPT) 7 0-55 U/L Alkaline Phosphatase 55 40-136 U/L Total Protein 8.1 6.4-8.2 GM/DL Albumin 4.3 3.2-4.5 GM/DL Lactic Acid Level 1.14 0.50-2.00 MMOL/L My Orders Orders - MILNER,PETER J WELDER GAS Ua Culture If Indicated (09/02/20 12:42) Cbc With Automated Diff (09/02/20 12:42) Comprehensive Metabolic Panel (09/02/20 12:42) Urine Bedside (09/02/20 12:42) Ns Iv 1000 Ml (Sodium Chloride 0.9%) (09/02/20 13:15) Ketorolac Injection (Toradol Injection) (09/02/20 13:15) Ed Iv/Invasive Line Start (09/02/20 13:11) Manual Differential (09/02/20 13:10) Urine Culture (09/02/20 12:44) Ceftriaxone For Iv Use (Rocephin For I (09/02/20 14:00) Ct Abd/Pelv W (Appendicitis) (09/02/20 14:03) Blood Culture (09/02/20 14:04) Lactic Acid Analyzer (09/02/20 14:04) Iohexol Injection (Omnipaque 350 Mg/Ml 1 (09/02/20 14:30) Received Contrast (Hold Metformin- Contr (09/02/20 14:30) Sodium Chloride Flush (Catheter Flush Sy (09/02/20 14:30) Ns (Ivpb) (Sodium Chloride 0.9% Ivpb Bag (09/02/20 14:30) Metronidazole Tablet (Flagyl Tablet) (09/02/20 14:45) Medications Given in ED Current Medications Medications Dose Ordered Sig/Max Route Start Time Stop Time Status Last Admin Dose Admin Iohexol 100 ml ONCE ONCE IV 09/02/20 14:30 09/02/20 14:38 DC 09/02/20 15:17 66 ML Ketorolac Tromethamine 30 mg ONCE ONCE IVP 09/02/20 13:15 09/02/20 13:16 DC 09/02/20 13:19 30 MG Sodium Chloride 100 ml ONCE ONCE IV 09/02/20 14:30 09/02/20 14:38 DC 09/02/20 15:17 80 ML Vital Signs/I&O 09/02/20 11:48 Temp 36.9 Pulse 132 Resp 20 B/P (MAP) 105/68 (80) Pulse Ox 99 O2 Delivery Room Air Departure Communication (Admissions) I discussed possibility of admission with the patient given the tachycardia leukocytosis. Shanthi she states that she cannot stay because she has 3 children at home and no manager package. Her clinical exam which is a minimally tender abdome n, alert and oriented no distress and surprisingly well-appearing young female would support the decision to let her go home. We will do Rocephin here, Flagyl here then discharged home with a prescription for antibiotics to fill tomorrow. Impression Primary Impression: Urinary tract infection Disposition: HOME, SELF-CARE Condition: Stable Departure-Patient Inst. Decision time for Depature: 15:47 Referrals: GEREMIAS BAR MD (PCP/Family) Primary Care Physician Patient Instructions: Urinary Tract Infection, Adult (DC) Add. Discharge Instructions: 1. Return to ER for any concerns such as nausea vomiting or fevers or abdominal pain. Take the antibiotics as directed. All discharge instructions reviewed with patient and/or family. Voiced understanding. Scripts Cephalexin (Keflex) 500 Mg Capsule 500 MG PO TID, #21 CAP Prov: NIRAV MILNER APRN 09/02/20 NIRAV MILNER APRN Sep 02, 2020 12:07
[2020-09-02 13:13] LABS: BILIRUBIN,URINE NEGATIVE (NEGATIVE); CLARITY,URINE CLOUDY; COLOR,URINE ORANGE; GLUCOSE, URINE (UA) NEGATIVE (NEGATIVE); KETONES,URINE NEGATIVE (NEGATIVE); LEUKOCYTE ESTERASE ,URINE NEGATIVE (NEGATIVE); NITRITE,URINE NEGATIVE (NEGATIVE); PROTEIN,URINE 2+ (NEGATIVE)
[2020-09-02] MEDS ORDERED: KETOROLAC 30 MG/ML VIAL IVP ONE (13:15)
[2020-09-02] MEDS ORDERED: NS IV 1000 ML 1,000 ML IV SCH (13:15)
[2020-09-02 13:19] LABS: BASOPHILS % (AUTO) 0 % (0-10); EOSINOPHILS # (AUTO) 0.1 10^3/uL (0.0-0.3); EOSINOPHILS % (AUTO) 0 % (0-10); HEMATOCRIT 35 % (35-52); HEMOGLOBIN 10.4 g/dL (11.5-16.0); LYMPHOCYTES # (AUTO) 1.6 10^3/uL (1.0-4.0); LYMPHOCYTES % (AUTO) 8 % (12-44); MEAN CORPUSCULAR HEMOGLOBIN 21 pg (25-34); MEAN CORPUSCULAR HGB CONC 30 g/dL (32-36); MEAN CORPUSCULAR VOLUME 71 fL (80-99); MEAN PLATELET VOLUME 9.7 fL (9.0-12.2); MONOCYTES # (AUTO) 1.4 10^3/uL (0.0-1.0); MONOCYTES % (AUTO) 7 % (0-12); NEUTROPHILS # (AUTO) 17.2 10^3/uL (1.8-7.8); NEUTROPHILS % (AUTO) 84 % (42-75); PLATELET COUNT 437 10^3/uL (130-400); WHITE BLOOD COUNT 20.5 10^3/uL (4.3-11.0)
[2020-09-02 13:26] LABS: ALBUMIN 4.3 GM/DL (3.2-4.5); CHLORIDE 101 MMOL/L (98-107); POTASSIUM 3.3 MMOL/L (3.6-5.0); SODIUM 136 MMOL/L (135-145)
[2020-09-02 13:27] LABS: CALCIUM 9.2 MG/DL (8.5-10.1)
[2020-09-02 13:28] LABS: GLUCOSE 111 MG/DL (70-105); TOTAL PROTEIN 8.1 GM/DL (6.4-8.2)
[2020-09-02 13:29] LABS: CARBON DIOXIDE 24 MMOL/L (21-32)
[2020-09-02 13:30] LABS: BACTERIA,URINE MODERATE /HPF; RBC,URINE 50-100 /HPF; TRICHOMONAS,URINE FEW /HPF; WBC,URINE >100 /HPF
[2020-09-02 13:30] LABS: BILIRUBIN,TOTAL 0.8 MG/DL (0.1-1.0)
[2020-09-02 13:32] LABS: ALKALINE PHOSPHATASE 55 U/L (40-136); CREATININE SERUM 0.95 MG/DL (0.60-1.30); GFR ESTIMATED > 60
[2020-09-02 13:33] LABS: BUN/CREATININE RATIO 16
[2020-09-02 13:35] LABS: ALANINE AMINOTRANSFERASE 7 U/L (0-55)
[2020-09-02 13:48] LABS: LYMPHOCYTES % (MANUAL) 7 %; MONOCYTES % (MANUAL) 7 %; NEUTROPHILS % (MANUAL) 86 %
[2020-09-02 13:49] LABS: ANISOCYTOSIS MODERATE; ELLIPT/OVALOCYTES SLIGHT; HYPOCHROMASIA MODERATE; POIKILOCYTOSIS SLIGHT; TOXIC GRANULATION/VACUOLAZATIO 1+
[2020-09-02] MEDS ORDERED: cefTRIAXone FOR IV USE 1,000 MG in WATER (STERILE) FOR INJECTION 10 ML IV ONE (14:00)
[2020-09-02] MEDS ORDERED: NS 100 ML (IVPB) BAG IV ONE (14:30)
[2020-09-02] MEDS ORDERED: HOLD METFORMIN - RECEIVED CONTRAST 20 ML VIAL IV SCH (14:30)
[2020-09-02] MEDS ORDERED: IOHEXOL 350 MG/ML 100 ML (OMNIPAQUE 350) VIAL IV ONE (14:30)
[2020-09-02] MEDS ORDERED: CATHETER FLUSH 10 ML SYR IV PRN (14:30)
[2020-09-02] MEDS ORDERED: metroNIDAZOLE 500 MG (FLAGYL) TAB PO ONE (14:45)
--- NOTE | 2020-09-02 15:41 | Diagnostic Imaging Report ---
CT ABD/PELV W (APPENDICITIS) TECHNIQUE: Multiple contiguous axial images were obtained through the abdomen and pelvis after administration of intravenous contrast. All CT scans use one or more of the following dose optimizing techniques: automated exposure control, MA and/or KvP adjustment based on a patient size and exam type, or iterative reconstruction. INDICATION: Suprapubic pain. COMPARISON: None available. FINDINGS: Lower chest: The lung bases are clear. No pericardial or pleural effusion. Peritoneum: No free intraperitoneal air or fluid. Liver and biliary system: The liver is normal. The gallbladder is normal. No biliary duct dilation. Spleen and Pancreas: Spleen is normal. The pancreas enhances normally without mass lesion or peripancreatic inflammatory changes. Adrenals: Normal. tract: The kidneys enhance normally without suspicious mass or obstruction. Urinary bladder is distended without wall thickening. IUD is appropriately positioned within the uterus. Ovaries are normal in appearance. GI tract: Stomach is decompressed. The small bowel loops and colon are fluid-filled suggestive of an enteritis. No bowel obstruction. No pericolonic inflammatory changes. Normal appendix which has a retrocecal position. Vasculature and Lymph nodes: Normal caliber aorta. No abdominal or pelvic lymphadenopathy. Musculoskeletal: No concerning osseous lesion. IMPRESSION: 1. Normal appendix. 2. Fluid-filled small bowel loops and colon are most likely due to enteritis. Dictated by: Dictated on workstation # [id number]
[2020-09-02] MEDS ORDERED: CEPH-507 PO (15:48)
[2020-09-02] MEDS ORDERED: WATER (STERILE) FOR INJECTION 10 ML ONE (16:03)
[2020-09-02] MEDS ORDERED: cefTRIAXone 1,000 MG IV (ROCEPHIN) VIAL ONE (16:03)
[2020-09-02 16:26] VITALS: BP 110/72
== END 2020-09-02 16:26 | disposition home or self-care (01) ==
LOC: EDUNIT# 11:04 → ER 11:05
DX: N39.0 Urinary tract infection, site not specified (principal); Z80.3 Family history of malignant neoplasm of breast
CPT/HCPCS: 36415; 74177; 80053; 81000; 83605; 84703; 85007; 85027; 87040; 87088

== ENCOUNTER 2022-11-13 18:12 | Emergency (ER) | payer MEDICAID ==
[~2022-11-13] VITALS: Ht 167 cm; Wt 54.0 kg
[~2022-11-13 18:12] MED LIST changes: +CEPH-507 PO; -SULF1TAB35 PO; +SULF1TAB38 PO
[2022-11-13 18:20] VITALS: BP 120/79
--- NOTE | 2022-11-13 18:35 | ED Integumentary General ---
General Chief Complaint: Skin/Wound Problems Stated Complaint: FINGER LACERATION Source: patient Exam Limitations: no limitations (STEPH GOFF) History of Present Illness Date Seen by Provider: Nov 13, 2022 Time Seen by Provider: 18:34 Initial Comments Patient is a 22-year-old female who presents ED with a laceration to her left distal middle finger. 1 cm laceration above the left PIP joint. Normal active range of motion. No active bleeding. This occurred around 12:00 when she was using a knife. The knife slipped resulting in a laceration. Every time she klever ds her finger it wants to bleed. Up-to-date her tetanus within the past 5 years (STEPH GOFF) Allergies and Home Medications Allergies Coded Allergies: No Known Drug Allergies (Unverified , 06/13/14) Patient Home Medication List Home Medication List Reviewed: Yes (STEPH GOFF) Cephalexin (Keflex) 500 Mg Capsule, 500 MG PO TID Prescribed by: NIRAV MILNER on 09/02/20 1548 Ferrous Sulfate (Ferrous Sulfate) 325 Mg Tablet, 325 MG PO DAILY Prescribed by: JOBY BURDEN on 07/01/19 0834 Ibuprofen (Ibu) 600 Mg Tablet, 600 MG PO Q6HR Prescribed by: JOBY BURDEN on 07/01/19 0834 Vit W-Ca,Fe,FA(<1 mg) ( Vitamins) 1 Each Tablet, 1 EACH PO DAILY, (Reported) Entered as Reported by: AUDREY AL on 04/05/181942 Review of Systems Review of Systems Constitutional: No chills, No diaphoresis, No malaise EENTM: No ear pain, No blurred vision Respiratory: No cough, No dyspnea on exertion Cardiovascular: No chest pain Gastrointestinal: No abdominal pain, No diarrhea, No nausea, No vomiting Genitourinary: No frequency, No hematuria Musculoskeletal: No back pain, No joint pain Skin: No change in color, No change in hair/nails; other (laceration) (STEPH GOFF) All Other Systems Reviewed Negative Unless Noted: Yes (STEPH GOFF) Past Wkbjipm-Wanwks-Dkivng Hx Immunizations Up To Date Tetanus Booster (TDap): Less than 5yrs PED Vaccines UTD: Yes (STEPH GOFF) Seasonal Allergies Seasonal Allergies: No (STEPH GOFF) Past Medical History Surgeries: No Respiratory: No Cardiac: No Neurological: No Female Reproductive Disorders: Denies Sexually Transmitted Disease: No HIV/AIDS: No Genitourinary: No Gastrointestinal: No Musculoskeletal: No Endocrine: No HEENT: No Tonsilitis Loss of Vision: Denies Hearing Impairment: Denies Cancer: No Psychosocial: No ADD/ADHD, Bipolar, Depression Integumentary: No Blood Disorders: No Adverse Reaction/Blood Tranf: No (STEPH GOFF) Family Medical History Asthma 19 FATHER FH: breast cancer MATERNAL GRANDMOTHER PATERNAL GRANDMOTHER FH: kidney disease 19 MOTHER, Onset:Childhood No Pertinent Family Hx (STEPH GOFF) Physical Exam Vital Signs Vital Signs - First Documented 11/13/22 18:20 Temp 36.7 Pulse 89 Resp 20 B/P (MAP) 120/79 (93) Pulse Ox 98 O2 Delivery Room Air (TARA WOLFF MD) Vital Signs Capillary Refill : (STEPH GOFF) General Appearance: WD/WN, no apparent distress HEENT: PERRL/EOMI, normal ENT inspection, TMs normal, pharynx normal Neck: non-tender, full range of motion, supple, normal inspection Cardiovascular: regular rate, rhythm, no edema, no gallop, no JVD Respiratory: chest non-tender, lungs clear, normal breath sounds, no respiratory distress Gastrointestinal: normal bowel sounds, non tender, soft, no organomegaly Back: normal inspection, no CVA tenderness Extremities: normal range of motion, non-tender, other (1 cm laceration to the left dorsum middle finger) Neurologic/Psychiatric: fence maker II-XII nml as tested, no motor/sensory deficits, alert, normal mood/affect, oriented x 3 Skin: other (1 cm laceration to left middle finger) (STEPH GOFF) Procedures/Interventions Wound Location: Upper Extremities Wound Length (cm): 1 Wound's Depth, Shape: superficial Wound Explored: clean Irrigated w/ Saline (ccs): 100 Betadine Prep?: Yes Anesthesia: 1% Lidocaine Wound Debrided: minimal Suture: Ethlion Suture Size: 4-0 Number of Sutures: 2 Layer Closure?: 1 Sterile Dressing Applied?: Yes (STEPH GOFF) Progress/Results/Core Measures Results/Orders Vital Signs/I&O 11/13/22 18:20 Temp 36.7 Pulse 89 Resp 20 B/P (MAP) 120/79 (93) Pulse Ox 98 O2 Delivery Room Air (TARA WOLFF MD) Departure Communication (PCP) 1 cm superficial laceration to left dorsum middle finger. 2 Ethilon sutures were placed. Finger splint for comfort and allow healing. Neosporin daily. Does not need antibiotics. Up-to-date on her tetanus. Normal active range of motion at the PIP and DIP joint. Return precaution were discussed with patient such as increased redness, swelling or pain. No tendon or muscular involvement. (STEPH GOFF) Impression Primary Impression: Finger laceration Disposition: HOME, SELF-CARE Condition: Stable Departure-Patient Inst. Decision time for Depature: 18:43 (STEPH GOFF) Referrals: GEREMIAS BAR MD (PCP/Family) Primary Care Physician Patient Instructions: Laceration Repair With Stitches ED Add. Discharge Instructions: Remove sutures in 10 days. Keep the area clean soap and water. Recommend Neosporin daily. All discharge instructions reviewed with patient and/or family. Voiced understanding. ATTENDING PHYSICIAN NOTE: I was physically present as attending physician in the emergency department during the care of this patient, but I was not directly involved in the decision making or delivery of care for this patient. (TARA WOLFF MD) STEPH GOFF Nov 13, 2022 18:35 TARA WOLFF MD Nov 14, 2022 20:53
[2022-11-13] MEDS ORDERED: LIDOCAINE 1% INJ 10 ML VIAL INJ ONE (18:45)
== END 2022-11-13 19:02 | disposition home or self-care (01) ==
LOC: EDUNIT# 18:12 → ER 18:13
DX: S61.213A Laceration without foreign body of left middle finger without damage to nail, initial encounter (principal); Z28.310 Unvaccinated for COVID-19; W26.0XXA Contact with knife, initial encounter
CPT/HCPCS: 12041; 29130; 64450

== ENCOUNTER 2023-01-22 15:22 | Emergency (ER) | payer MEDICAID ==
[~2023-01-22] VITALS: Ht 173 cm; Wt 54.0 kg
[2023-01-22] MEDS: NS IV 1000 ML 1,000 ML IV SCH ×2 (15:42→16:35)
[2023-01-22 16:02] LABS: BASOPHILS % (AUTO) 0 % (0-10); EOSINOPHILS % (AUTO) 0 % (0-10); HEMATOCRIT 40 % (35-52); HEMOGLOBIN 13.4 g/dL (11.5-16.0); LYMPHOCYTES # (AUTO) 0.8 10^3/uL (1.0-4.0); LYMPHOCYTES % (AUTO) 9 % (12-44); MEAN CORPUSCULAR HEMOGLOBIN 29 pg (25-34); MEAN CORPUSCULAR HGB CONC 33 g/dL (32-36); MEAN CORPUSCULAR VOLUME 86 fL (80-99); MEAN PLATELET VOLUME 10.1 fL (9.0-12.2); MONOCYTES # (AUTO) 0.5 10^3/uL (0.0-1.0); MONOCYTES % (AUTO) 5 % (0-12); NEUTROPHILS # (AUTO) 7.6 10^3/uL (1.8-7.8); NEUTROPHILS % (AUTO) 85 % (42-75); PLATELET COUNT 381 10^3/uL (130-400); WHITE BLOOD COUNT 8.9 10^3/uL (4.3-11.0)
[2023-01-22 16:07] LABS: BILIRUBIN,URINE NEGATIVE (NEGATIVE); CLARITY,URINE CLEAR; COLOR,URINE YELLOW; GLUCOSE, URINE (UA) 1+ (NEGATIVE); KETONES,URINE NEGATIVE (NEGATIVE); LEUKOCYTE ESTERASE ,URINE NEGATIVE (NEGATIVE); NITRITE,URINE NEGATIVE (NEGATIVE); PH,URINE 5.5 (5-9); PROTEIN,URINE TRACE (NEGATIVE)
[2023-01-22] MEDS ORDERED: NS IV 1000 ML 1,000 ML ONE (16:19)
[2023-01-22 16:22] LABS: ALBUMIN 4.6 GM/DL (3.2-4.5); CHLORIDE 106 MMOL/L (98-107); POTASSIUM 3.7 MMOL/L (3.6-5.0); SODIUM 133 MMOL/L (135-145)
[2023-01-22 16:23] LABS: CALCIUM 8.9 MG/DL (8.5-10.1)
[2023-01-22 16:24] LABS: GLUCOSE 176 MG/DL (70-105); TOTAL PROTEIN 8.1 GM/DL (6.4-8.2)
[2023-01-22 16:25] LABS: CARBON DIOXIDE 11 MMOL/L (21-32)
[2023-01-22 16:26] LABS: BILIRUBIN,TOTAL 0.6 MG/DL (0.1-1.0)
[2023-01-22 16:28] LABS: ALKALINE PHOSPHATASE 46 U/L (40-136); CREATININE SERUM 0.76 MG/DL (0.60-1.30); GFR ESTIMATED 113
[2023-01-22 16:29] LABS: BUN/CREATININE RATIO 12
[2023-01-22 16:31] LABS: ALANINE AMINOTRANSFERASE 45 U/L (0-55); BACTERIA,URINE NEGATIVE /HPF; MAGNESIUM 1.7 MG/DL (1.6-2.4)
[2023-01-22 16:32] LABS: CREATINE KINASE 107 U/L (29-168)
[2023-01-22 16:50] LABS: SALICYLATE < 5.0 MG/DL (5.0-20.0)
[2023-01-22 16:53] LABS: AMPHETAMINE SCREEN, URINE NEGATIVE (NEGATIVE); BARBITURATE SCREEN URINE NEGATIVE (NEGATIVE); BENZODIAZEPINES SCREEN URINE NEGATIVE (NEGATIVE); CANNABINOID SCREEN, URINE NEGATIVE (NEGATIVE); COCAINE SCREEN URINE NEGATIVE (NEGATIVE); METHADONE STAT POSITIVE (NEGATIVE); OPIATE SCREEN URINE NEGATIVE (NEGATIVE); OXYCODONE STAT NEGATIVE (NEGATIVE); PROPOXYPHENE STAT NEGATIVE (NEGATIVE); TRICYCLIC ANTIDEPRESSANTS SCRE POSITIVE (NEGATIVE)
[2023-01-22 16:55] LABS: ACETAMINOPHEN 377 UG/ML (10-30)
[2023-01-22 17:19] LABS: INR 1.2 (0.8-1.4); PROTHROMBIN TIME PATIENT 15.8 SEC (12.2-14.7)
[2023-01-22] MEDS ORDERED: ACETYLCYSTEINE (ACETADOTE) IV 6000 MG/30 ML VIAL ONE (17:35)
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
[2023-01-22] MEDS ORDERED: ACETYLCYSTEINE IV ONE ×2 (17:45→18:45)
[2023-01-22] MEDS ORDERED: D5W IV ONE ×2 (17:45→18:45)
[2023-01-22 19:16] VITALS: BP 132/94
[2023-01-22] MEDS ORDERED: LORazepam 0.5 MG (ATIVAN) TABLET BC ONE (19:30)
[2023-01-23] MEDS ORDERED: ACETYLCYSTEINE IV SCH (06:45)
[2023-01-23] MEDS ORDERED: D5W IV SCH (06:45)
== END 2023-01-22 19:52 | disposition short-term general hospital (02) ==
LOC: EDUNIT# 15:22 → ER 15:24
DX: S12.690A Other displaced fracture of seventh cervical vertebra, initial encounter for closed fracture (principal); S13.4XXA Sprain of ligaments of cervical spine, initial encounter; T39.1X4A Poisoning by 4-Aminophenol derivatives, undetermined, initial encounter; S00.12XA Contusion of left eyelid and periocular area, initial encounter; S00.83XA Contusion of other part of head, initial encounter; S00.531A Contusion of lip, initial encounter; S80.02XA Contusion of left knee, initial encounter; S80.01XA Contusion of right knee, initial encounter; F19.10 Other psychoactive substance abuse, uncomplicated; W19.XXXA Unspecified fall, initial encounter; Y92.009 Unspecified place in unspecified non-institutional (private) residence as the place of occurrence of the external cause
CPT/HCPCS: 51701; 70450; 70486; 71045; 72125; 80053; 80306; 81000; 82550; 83735; 84443; 84703; 85025; 85610; 85730; 93005; 93041; 99285; G0480 ×3; 36415; 80320; 80329

== ENCOUNTER 2023-05-15 13:09 | Emergency (ER) | payer MEDICAID ==
[~2023-05-15] VITALS: Ht 175 cm; Wt 58.0 kg
[2023-05-15 13:10] VITALS: BP 116/72
--- NOTE | 2023-05-15 13:28 | ED Abdominal Pain ---
General Chief Complaint: Abdominal/GI Problems Stated Complaint: ABD PAIN Nursing Triage Note: ARRIVED VIA AMB TO ROOM 07 WITH COMPLAINTS OF SEVERE ABD PAIN AFTER IUD WAS PLACED YESTERDAY. PT STATES SHE CALLED DR CARTAGENA OFFICE WHO TOLD HER TO COME TO THE ER. Source of Information: Patient Exam Limitations: No Limitations History of Present Illness Date Seen by Provider: May 15, 2023 Time Seen by Provider: 13:25 Initial Comments Patient is a 23-year-old female presents to ED for severe lower abdominal pain. She rates pain 10 out of 10. Started around 10 PM last night. Pain is located in her lower abdomen. She had a IUD placed at 3:[address] Bar. She states she felt fine after the procedure went home and this pain started. Pain has intensified. Located in the lower abdomen. Constant pain. Denies nausea vomiting diarrhea or urinary symptoms. Last menstrual cycle was April 24. She has had IUDs in the past without any complications. Patient states she cannot feel the string. Allergies and Home Medications Allergies Coded Allergies: No Known Drug Allergies (Unverified , 06/13/14) Patient Home Medication List Home Medication List Reviewed: Yes Cephalexin (Keflex) 500 Mg Capsule, 500 MG PO TID Prescribed by: NIRAV MILNER on 09/02/20 1548 Ferrous Sulfate (Ferrous Sulfate) 325 Mg Tablet, 325 MG PO DAILY Prescribed by: JOBY BURDEN on 07/01/19 0834 Ibuprofen (Ibu) 600 Mg Tablet, 600 MG PO Q6HR Prescribed by: JBOY BURDEN on 07/01/19 0834 Vit W-Ca,Fe,FA(<1 mg) ( Vitamins) 1 Each Tablet, 1 EACH PO DAILY, (Reported) Entered as Reported by: AUDREY AL on 04/05/181942 Review of Systems Review of Systems Constitutional: No chills, No diaphoresis, No malaise EENTM: No Double Vision, No Eye Pain Respiratory: Denies Cough, Denies Orthopnea Cardiovascular: Denies Chest Pain Gastrointestinal: Abdominal Pain; Denies Diarrhea, Denies Nausea Genitourinary: Denies Burning, Denies Drainage, Denies Frequency Musculoskeletal: No back pain, No joint pain Skin: No change in color Psychiatric/Neurological: Denies Anxiety All Other Systems Reviewed Negative Unless Noted: Yes Past Jiplcxe-Fhkcsu-Jhsvfs Hx Patient Social History Tobacco Use?: No Substance use?: No Alcohol Use?: No Immunizations Up To Date Tetanus Booster (TDap): Less than 5yrs PED Vaccines UTD: Yes Seasonal Allergies Seasonal Allergies: No Past Medical History Surgery/Hospitalization HX: MOTHER REPORTS SEIZURES Surgeries: No Respiratory: No Cardiac: No Neurological: No Female Reproductive Disorders: Denies Sexually Transmitted Disease: No HIV/AIDS: No Genitourinary: No Gastrointestinal: No Musculoskeletal: No Endocrine: No HEENT: No Tonsilitis Loss of Vision: Denies Hearing Impairment: Denies Cancer: No Psychosocial: Yes (Self cutting behavior) ADD/ADHD, Bipolar, Depression Integumentary: No Blood Disorders: No Adverse Reaction/Blood Tranf: No Family Medical History Asthma 19 FATHER FH: breast cancer MATERNAL GRANDMOTHER PATERNAL GRANDMOTHER FH: kidney disease 19 MOTHER, Onset:Childhood No Pertinent Family Hx Physical Exam Vital Signs Vital Signs - First Documented 05/15/23 13:10 Temp 36.9 Pulse 79 Resp 16 B/P (MAP) 116/72 (87) Pulse Ox 98 O2 Delivery Room Air Capillary Refill : Less Than 3 Seconds Height/Weight/BMI Height: 5'10.50" Weight: 150lbs. 0.0oz. [id number]; 18.00 BMI Method:Stated General Appearance: WD/WN, no apparent distress HEENT: PERRL/EOMI, normal ENT inspection, TMs normal, pharynx normal Neck: non-tender, full range of motion, supple Respiratory: chest non-tender, lungs clear, normal breath sounds, no respiratory distress, no accessory muscle use Cardiovascular: regular rate, rhythm, no edema, no gallop, no JVD Gastrointestinal: normal bowel sounds, soft, no organomegaly, tenderness (Bilateral lower abdominal tenderness, suprapubic tenderness.) Extremities: normal range of motion, non-tender, normal inspection, no pedal edema Back: normal inspection, no CVA tenderness 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, no motor/sensory deficits, alert, normal mood/affect, oriented x 3 Skin: normal color, warm/dry Procedures/Interventions Suture Size: 4-0 Progress/Results/Core Measures Results/Orders Lab Results Laboratory Tests Test 05/15/23 13:28 05/15/23 13:30 Range/Units Urine Color YELLOW Urine Clarity CLEAR Urine pH 7.0 5-9 Urine Specific [place] 1.015 L 1.016-1.022 Urine Protein NEGATIVE NEGATIVE Urine Glucose (UA) NEGATIVE NEGATIVE Urine Ketones NEGATIVE NEGATIVE Urine Nitrite NEGATIVE NEGATIVE Urine Bilirubin NEGATIVE NEGATIVE Urine Urobilinogen 1 < = 1.0 MG/DL Urine Leukocyte Esterase NEGATIVE NEGATIVE Urine RBC (Auto) NEGATIVE NEGATIVE Urine RBC NONE /HPF Urine WBC RARE /HPF Urine Squamous Epithelial Cells 2-5 /HPF Urine Crystals NONE /LPF Urine Bacteria NEGATIVE /HPF Urine Casts NONE /LPF Urine Mucus NEGATIVE /LPF Urine Culture Indicated NO Urine Test NEGATIVE NEGATIVE White Blood Count 10.0 4.3-11.0 10^3/uL Red Blood Count 4.69 3.80-5.11 10^6/uL Hemoglobin 12.6 11.5-16.0 g/dL Hematocrit 39 35-52 % Mean Corpuscular Volume 83 80-99 fL Mean Corpuscular Hemoglobin 27 25-34 pg Mean Corpuscular Hemoglobin Concent 33 32-36 g/dL Red Cell Distribution Width 13.8 10.0-14.5 % Platelet Count 322 130-400 10^3/uL Mean Platelet Volume 10.1 9.0-12.2 fL Immature Granulocyte % (Auto) 0 % Neutrophils (%) (Auto) 67 42-75 % Lymphocytes (%) (Auto) 22 12-44 % Monocytes (%) (Auto) 9 0-12 % Eosinophils (%) (Auto) 1 0-10 % Basophils (%) (Auto) 0 0-10 % Neutrophils # (Auto) 6.7 1.8-7.8 10^3/uL Lymphocytes # (Auto) 2.2 1.0-4.0 10^3/uL Monocytes # (Auto) 0.9 0.0-1.0 10^3/uL Eosinophils # (Auto) 0.1 0.0-0.3 10^3/uL Basophils # (Auto) 0.0 0.0-0.1 10^3/uL Immature Granulocyte # (Auto) 0.0 0.0-0.1 10^3/uL Sodium Level 138 135-145 MMOL/L Potassium Level 3.4 L 3.6-5.0 MMOL/L Chloride Level 106 98-107 MMOL/L Carbon Dioxide Level 24 21-32 MMOL/L Anion Gap 8 5-14 MMOL/L Blood Urea Nitrogen 11 7-18 MG/DL Creatinine 0.84 0.60-1.30 MG/DL Estimat Glomerular Filtration Rate 99 BUN/Creatinine Ratio 13 Glucose Level 91 70-105 MG/DL Calcium Level 9.1 8.5-10.1 MG/DL Corrected Calcium 9.0 8.5-10.1 MG/DL Total Bilirubin 0.8 0.1-1.0 MG/DL Aspartate Amino Transf (AST/SGOT) 10 5-34 U/L Alanine Aminotransferase (ALT/SGPT) 10 0-55 U/L Alkaline Phosphatase 42 40-136 U/L Total Protein 6.7 6.4-8.2 GM/DL Albumin 4.1 3.2-4.5 GM/DL Lipase 21 8-78 U/L My Orders Orders - STEPH GOFF Cbc With Automated Diff (05/15/23 13:21) Comprehensive Metabolic Panel (05/15/23 13:21) Lipase (05/15/23 13:21) Ua Culture If Indicated (05/15/23 13:21) Hcg,Qualitative Urine (05/15/23 13:21) Ketorolac Injection (Ketorolac Injection (05/15/23 13:30) Us Non Ob Pelvis Comp/Transvag (05/15/23 13:23) Medications Given in ED Current Medications Medications Dose Ordered Sig/Max Route Start Time Stop Time Status Last Admin Dose Admin Ketorolac Tromethamine 30 mg ONCE ONCE IVP 05/15/23 13:30 05/15/23 13:31 DC 05/15/23 13:31 30 MG Vital Signs/I&O 05/15/23 13:10 Temp 36.9 Pulse 79 Resp 16 B/P (MAP) 116/72 (87) Pulse Ox 98 O2 Delivery Room Air Blood Pressure Mean: 87 Departure Communication (PCP) Reviewed previous ER visits, H&P, lab testing. Differential diagnosis, uterine cramping, IUD displacement, ovarian torsion, UTI, PID. She had a IUD placed yesterday afternoon by Dr. Bar. She has had IUD in the past.*Developing lower abdominal pain cramping since 10 PM last night. No previous abdominal surgery. No vaginal discharge or urinary symptoms suggesting UTI or PID. due to location of pain and her symptoms CBC, CMP, lipase urinalysis with test. Urinalysis was negative for infection and negative for . CBC, CMP grossly unremarkable. Ultrasound was ordered rule out abnormal placement, uterine injury, ovarian torsion. Ultrasound shows correct IUD placement. No evidence of uterine rupture. Blood flow noted to the ovaries. Partial complex collapsed cyst right ovary. Patient received Toradol with improvement of pain. patient vital signs stable. She does not appear in acute distress after Toradol. Symptoms likely secondary to the recent IUD placement resulting in uterine cramping. This should improve in the next few days. Recommend Tylenol ibuprofen at home. Discussed follow-up with Dr. Bar for further evaluation. If increasing pain, fever or vomiting to return back to ED. No evidence of surgical abdomen at this time. Impression Primary Impression: Abdominal pain Disposition: HOME, SELF-CARE Condition: Stable Departure-Patient Inst. Decision time for Depature: 14:52 Referrals: GEREMIAS BAR MD (PCP/Family) Primary Care Physician Patient Instructions: Abdominal Pain, Adult ED Add. Discharge Instructions: Recommend anti-inflammatories for pain. Recommend contacting Dr. Bar for a further evaluation. If increasing pain, fever, vomiting to return back to ED All discharge instructions reviewed with patient and/or family. Voiced understanding. STEPH GOFF May 15, 2023 13:28
[2023-05-15] MEDS ORDERED: KETOROLAC INJ 30 MG/ML VIAL IVP ONE (13:30)
[2023-05-15 13:39] LABS: BASOPHILS % (AUTO) 0 % (0-10); EOSINOPHILS # (AUTO) 0.1 10^3/uL (0.0-0.3); EOSINOPHILS % (AUTO) 1 % (0-10); HEMATOCRIT 39 % (35-52); HEMOGLOBIN 12.6 g/dL (11.5-16.0); LYMPHOCYTES # (AUTO) 2.2 10^3/uL (1.0-4.0); LYMPHOCYTES % (AUTO) 22 % (12-44); MEAN CORPUSCULAR HEMOGLOBIN 27 pg (25-34); MEAN CORPUSCULAR HGB CONC 33 g/dL (32-36); MEAN CORPUSCULAR VOLUME 83 fL (80-99); MEAN PLATELET VOLUME 10.1 fL (9.0-12.2); MONOCYTES # (AUTO) 0.9 10^3/uL (0.0-1.0); MONOCYTES % (AUTO) 9 % (0-12); NEUTROPHILS # (AUTO) 6.7 10^3/uL (1.8-7.8); NEUTROPHILS % (AUTO) 67 % (42-75); PLATELET COUNT 322 10^3/uL (130-400)
[2023-05-15 13:53] LABS: ALBUMIN 4.1 GM/DL (3.2-4.5); POTASSIUM 3.4 MMOL/L (3.6-5.0)
[2023-05-15 13:54] LABS: CALCIUM 9.1 MG/DL (8.5-10.1)
[2023-05-15 13:55] LABS: TOTAL PROTEIN 6.7 GM/DL (6.4-8.2)
[2023-05-15 13:57] LABS: BILIRUBIN,TOTAL 0.8 MG/DL (0.1-1.0)
[2023-05-15 13:59] LABS: CREATININE SERUM 0.84 MG/DL (0.60-1.30)
[2023-05-15 14:03] LABS: BILIRUBIN,URINE NEGATIVE (NEGATIVE); CLARITY,URINE CLEAR; COLOR,URINE YELLOW; GLUCOSE, URINE (UA) NEGATIVE (NEGATIVE); KETONES,URINE NEGATIVE (NEGATIVE); NITRITE,URINE NEGATIVE (NEGATIVE); PROTEIN,URINE NEGATIVE (NEGATIVE)
[2023-05-15 14:05] LABS: BACTERIA,URINE NEGATIVE /HPF; LEUKOCYTE ESTERASE ,URINE NEGATIVE (NEGATIVE); WBC,URINE RARE /HPF
--- NOTE | 2023-05-15 14:51 | Diagnostic Imaging Report ---
PROCEDURE: Pelvic comp/transvaginal sonogram. TECHNIQUE: Complete transabdominal and transvaginal pelvic ultrasound was performed. In addition, limited pelvic Doppler was performed. INDICATION: Pelvic pain. Patient is status post IUD placement one day earlier. FINDINGS: Uterus is anteverted measuring 8.4 x 4.5 x 7.1 cm. Endometrium is 8 mm in thickness. The IUD appears to be appropriately centered in the endometrial canal. No myometrial mass is identified. Right ovary measures 4.0 x 2.3 x 3.0 cm, and left ovary measures 3.7 x 2.5 x 2.8 cm. There appears to be a partially collapsed complex cyst in the right ovary, approximately 2.2 cm in size. There is blood flow to both ovaries. No free fluid is detected. IMPRESSION: 1. The IUD appears to be appropriately centered in the endometrial canal. No definite complicating features are detected. Dictated by: Dictated on workstation # [id number]
== END 2023-05-15 15:00 | disposition home or self-care (01) ==
LOC: EDUNIT# 13:09 → ER 13:11
DX: R10.31 Right lower quadrant pain (principal); R10.32 Left lower quadrant pain
CPT/HCPCS: 36415; 76830; 76856; 80053; 81000; 83690; 84703; 85025